=== PATIENT | female | born 1965 | race Two or more races ===

== ENCOUNTER → 2019-07-11 15:52 | Outpatient (CLI) | payer OTHER | END | disposition home or self-care (01) | LOC: LAB 15:52 | DX: R10.84 Generalized abdominal pain (principal); A09 Infectious gastroenteritis and colitis, unspecified ==

== ENCOUNTER → 2019-07-17 | Outpatient (CLI) | payer OTHER | END | disposition home or self-care (01) | LOC: TOM 07:28 | DX: R10.84 Generalized abdominal pain (principal); K56.5 Intestinal adhesions [bands] with obstruction (postinfection) ==

== ENCOUNTER 2019-07-24 06:00 | Day surgery (SDC) | payer OTHER | END 2019-07-24 12:15 | disposition home or self-care (01) | LOC: AMB-ENDOS 06:00 | DX: D12.2 Benign neoplasm of ascending colon (principal); K64.8 Other hemorrhoids; K57.30 Diverticulosis of large intestine without perforation or abscess without bleeding ==